=== PATIENT | female | born 1975 | race Caucasian/White ===

== ENCOUNTER 2017-10-06 10:12 | Emergency (ER) | payer OTHER ==
[~2017-10-06] VITALS: Ht 160 cm; Wt 105.7 kg
[2017-10-06 10:34] VITALS: BP 148/93; Ht 160 cm; Wt 105.7 kg
== END 2017-10-06 12:03 | disposition home or self-care (01) ==
LOC: ED 10:12
DX: K59.00 Constipation, unspecified (principal)